=== PATIENT | female | born 1945 | race Two or more races ===

== ENCOUNTER 2018-02-04 06:40 | Day surgery (SDC) | payer OTHER | END 2018-02-04 10:25 | disposition home or self-care (01) | LOC: CIR.AMB 06:40 | DX: D12.2 Benign neoplasm of ascending colon (principal); D12.5 Benign neoplasm of sigmoid colon; K64.8 Other hemorrhoids ==

== ENCOUNTER 2019-04-06 06:11 | Inpatient (IN) | payer OTHER ==
[~2019-04-06] VITALS: Ht 160 cm; Wt 56.2 kg
--- NOTE | 2019-04-06 06:33 | NUR ---
PTE REFERIDA POR EL DR. Joyce SULLIVAN REFIERE DOLOR ABDOMINAL.
[2019-04-06] MEDS ORDERED: CLONAZEPAM1 M1 (06:34)
[2019-04-06] MEDS ORDERED: COZAAR25 MG (06:34)
[2019-04-06] MEDS ORDERED: PREVACID15 MG (06:34)
--- NOTE | 2019-04-06 09:17 | NUR ---
PACIENTE ALERTA Y ORIENTADA X3 ES EVALUADA POR QUIEN ORDENA REALIZAR MUESTRAS DE LABORATORIOS Y CANALIZACION DE VENA PARA ADMINISTRACION DE MEDICAMENTO , SE ORIENTA SOBRE ORDEN MEDICA SE EJECUTA ORDEN.
[2019-04-15] MEDS ORDERED: HYOSCYAMINE0.125 M1 SL (08:30)
[2019-04-15] MEDS ORDERED: INTESTINEX680 M1 PO (08:30)
[2019-04-15] MEDS ORDERED: OXYC1TAB9 PO (08:31)
[2019-04-15] MEDS ORDERED: CARAFATE1 GM PO (08:31)
== END 2019-04-15 10:15 | disposition home or self-care (01) | DRG 330 ==
LOC: ER 06:11 → SURH 09:35
PROVIDERS: ADMIT Surgery
PROC: BW30Y0Z Magnetic Resonance Imaging (MRI) of Abdomen using Other Contrast, Unenhanced and Enhanced (ICD-10-PCS; 2019-04-06)
PROC: BW3GY0Z Magnetic Resonance Imaging (MRI) of Pelvic Region using Other Contrast, Unenhanced and Enhanced (ICD-10-PCS; 2019-04-06)
PROC: 02HV33Z Insertion of Infusion Device into Superior Vena Cava, Percutaneous Approach (ICD-10-PCS; 2019-04-07)
PROC: 3E0436Z Introduction of Nutritional Substance into Central Vein, Percutaneous Approach (ICD-10-PCS; 2019-04-07)
PROC: 07TB4ZZ Resection of Mesenteric Lymphatic, Percutaneous Endoscopic Approach (ICD-10-PCS; 2019-04-09)
PROC: 0DBU4ZZ Excision of Omentum, Percutaneous Endoscopic Approach (ICD-10-PCS; 2019-04-09)
PROC: 0DTF4ZZ Resection of Right Large Intestine, Percutaneous Endoscopic Approach (ICD-10-PCS; principal; 2019-04-09 11:00)
DX: C18.0 Malignant neoplasm of cecum (principal); C77.5 Secondary and unspecified malignant neoplasm of intrapelvic lymph nodes; K56.690 Other partial intestinal obstruction; K57.20 Diverticulitis of large intestine with perforation and abscess without bleeding; M51.24 Other intervertebral disc displacement, thoracic region; I11.9 Hypertensive heart disease without heart failure; K66.0 Peritoneal adhesions (postprocedural) (postinfection)
CPT/HCPCS: 72198; 74182

== ENCOUNTER 2019-09-19 11:06 | Emergency (ER) | payer OTHER ==
[~2019-09-19] VITALS: Ht 160 cm; Wt 56.2 kg
[~2019-09-19 11:06] MED LIST: CARAFATE1 GM PO; CLONAZEPAM1 M1; COZAAR25 MG; HYOSCYAMINE0.125 M1 SL; INTESTINEX680 M1 PO; OXYC1TAB9 PO; PREVACID15 MG
[2019-09-19] MEDS ORDERED: ZOCOR20 MG (11:35)
[2019-09-19] MEDS ORDERED: RELAFEN DS1000 MG (11:35)
[2019-09-19] MEDS ORDERED: COZAAR50 MG (11:36)
== END 2019-09-19 17:00 | disposition home or self-care (01) ==
LOC: ER 11:06
DX: K59.09 Other constipation (principal); R10.84 Generalized abdominal pain

== ENCOUNTER 2020-08-23 06:45 | Day surgery (SDC) | payer OTHER ==
[~2020-08-23 06:45] MED LIST changes: +COZAAR50 MG; +RELAFEN DS1000 MG; +ZOCOR20 MG
== END 2020-08-23 10:05 | disposition home or self-care (01) ==
LOC: AMB-ENDOS 06:45
PROVIDERS: ATTEND Surgery
DX: D12.3 Benign neoplasm of transverse colon (principal); K64.8 Other hemorrhoids; Z20.822 Contact with and (suspected) exposure to COVID-19

== ENCOUNTER 2022-05-18 09:45 | Inpatient (IN) | payer OTHER ==
[~2022-05-18] VITALS: Ht 160 cm; Wt 56.7 kg
[~2022-05-18 09:45] MED LIST changes: +GABAPENTIN 100 MG; +HYDROCHLOROTHIA25 MG
[2022-05-18] MEDS ORDERED: PEPCID20 MG PO (13:10)
[2022-05-22] MEDS ORDERED: NABUMETONE500 MG (08:19)
[2022-05-22] MEDS ORDERED: FAMOTIDINE20 MG (08:19)
[2022-05-22] MEDS ORDERED: ESCITALOPRAM OXA5 MG (08:19)
[2022-05-22] MEDS ORDERED: VITAMIN D3250 MCG (08:19)
[2022-05-22] MEDS ORDERED: GABAPENTIN100 M2 (08:19)
[2022-05-22] MEDS ORDERED: LANSOPRAZOLE30 MG (08:19)
[2022-05-23] MEDS ORDERED: HYOSCYAMINE0.125 M1 SL (08:16)
[2022-05-23] MEDS ORDERED: INTESTINEX680 M1 PO (08:16)
[2022-05-23] MEDS ORDERED: PROTONIX40 MG PO (08:16)
[2022-05-23] MEDS ORDERED: TRAM1TAB98 PO (08:16)
== END 2022-05-23 14:03 | disposition home or self-care (01) | DRG 336 ==
LOC: O/R 05-21 06:40 → SURH 05-21 06:40
PROVIDERS: Surgery; ADMIT Surgery; ATTEND Surgery
PROC: 0T768DZ Dilation of Right Ureter with Intraluminal Device, Via Natural or Artificial Opening Endoscopic (ICD-10-PCS; 2022-05-21)
PROC: 0DNW0ZZ Release Peritoneum, Open Approach (ICD-10-PCS; principal; 2022-05-21 11:00)
PROC: 0WBH0ZX Excision of Retroperitoneum, Open Approach, Diagnostic (ICD-10-PCS; 2022-05-21 11:00)
DX: C18.0 Malignant neoplasm of cecum (principal); C78.6 Secondary malignant neoplasm of retroperitoneum and peritoneum; N13.39 Other hydronephrosis; R19.4 Change in bowel habit; R19.5 Other fecal abnormalities; K52.89 Other specified noninfective gastroenteritis and colitis; R97.0 Elevated carcinoembryonic antigen [CEA]; K66.0 Peritoneal adhesions (postprocedural) (postinfection); Z53.31 Laparoscopic surgical procedure converted to open procedure